=== PATIENT | male | born 2000 | race Caucasian/White ===

== ENCOUNTER 2024-06-05 09:30 | Outpatient (CLI) | payer OTHER, SELFPAY ==
[2024-06-05 10:00] VITALS: PULSE 70; PULSE 76
[2024-06-05] MEDS: ALBUTEROL 0.083% 2.5 MG/3 ML NEB IH (10:00)
--- NOTE | 2024-06-05 10:23 | XR_ITS ---
FINAL REPORT CLINICAL HISTORY: Shortness of breath FINDINGS: PA and lateral views of the chest are obtained. There is no prior exam for comparison. The heart is normal in size. There is fullness of the left hilum which may be vascular. Lymphadenopathy is difficult to exclude. The lungs are clear. There is no pleural effusion, pneumothorax, or acute osseous abnormality. IMPRESSION: Left hilar fullness. Given patient's age, this could be reactive lymph node. Consider follow-up chest x-ray in 4 to 6 weeks. Reviewed, Interpreted and Dictated by Loretta Schmidt MD Transcribed by Yenifer Ferguson Authenticated and [facility]
== END 2024-06-05 23:59 | disposition home or self-care (01) ==
LOC: RT 09:34
PROVIDERS: PCP Family Medicine; Visit Provider Chiropractor
DX: R91.8 Other nonspecific abnormal finding of lung field (principal); R06.02 Shortness of breath
CPT/HCPCS: 71046; 94010; 94640; J7613